=== PATIENT | male | born 1960 | race Caucasian/White ===

== ENCOUNTER 2017-07-18 14:44 | Inpatient (IN) | payer OTHER ==
[~2017-07-18] VITALS: Ht 175.3 cm; Wt 91.1 kg
[2017-07-18 15:14] VITALS: BP 145/104
[2017-07-18] MEDS ORDERED: ENOXAPARIN 40 MG/0.4 ML SQ SCH (16:00)
[2017-07-18] MEDS ORDERED: hydrALAzine 20 MG/ML, 1ML IVPush PRN (16:00)
[2017-07-18] MEDS: PLEASE ENTER HEIGHT AND WEIGHT MC SCH ×2 (16:30→17:17)
[2017-07-18 16:35] LABS: HEMATOCRIT 54.4 % (39.2-51.8); HEMOGLOBIN 18.5 g/dL (13.7-18.0); WHITE BLOOD COUNT 7.6 x10^3/uL (3.4-10)
[2017-07-18] MEDS: morphine SULFATE 10 MG/ML, 1ML IVPush PRN ×3 (16:35→22:52)
[2017-07-18 16:53] LABS: CARCINOEMBRYONIC ANTIGEN 7.36 ng/mL (0.0-3.00)
[2017-07-18] MEDS: D5%-0.45NACL+KCL 20MEQ 1,000 ML IV SCH (18:02)
[2017-07-18] MEDS: NICOTINE 14MG/24 HR PATCH.TD24 TD SCH (18:04)
[2017-07-18] MEDS: ONDANSETRON 2MG/ML, 2ML IVPush PRN (19:46)
[2017-07-18 19:52] LABS: DAU SCREEN DISCLAIMER
[2017-07-18] MEDS ORDERED: LORazepam 2 MG/ML, 1ML IVPush ONE (21:00)
[2017-07-18 21:12] VITALS: BP 170/105
[2017-07-19] MEDS: ONDANSETRON 2MG/ML, 2ML IVPush PRN (01:09)
[2017-07-19] MEDS: morphine SULFATE 10 MG/ML, 1ML IVPush PRN (01:48)
[2017-07-19] MEDS ORDERED: LORazepam 2 MG/ML, 1ML IVPush ONE (04:00)
[2017-07-19 04:04] VITALS: BP 144/95
[2017-07-19] MEDS: D5%-0.45NACL+KCL 20MEQ 1,000 ML IV SCH (04:17)
[2017-07-19 05:42] LABS: HEMOGLOBIN 18.6 g/dL (13.7-18.0); WHITE BLOOD COUNT 6.8 x10^3/uL (3.4-10)
[2017-07-19 05:52] LABS: ASPARTATE AMINO TRANSFERASE 24 U/L (15-37); BLOOD UREA NITROGEN 26 mg/dL (7-18)
[2017-07-19] MEDS: PANTOPRAZOLE 40 MG IV IVPush SCH (07:30)
[2017-07-19 07:32] LABS: DIFF TOTAL CELLS COUNTED 100 CELL DIFF
[2017-07-19] MEDS ORDERED: KETAMINE 10 MG/ML, 20ML ONE (08:25)
[2017-07-19] MEDS ORDERED: FENTANYL PF 100 MCG/2ML ONE (08:25)
[2017-07-19] MEDS ORDERED: ETOMIDATE 20 MG/10 ML ONE (08:32)
[2017-07-19] MEDS ORDERED: SUCCINYLCHOLINE 20 MG/ML, 10ML ONE (08:32)
[2017-07-19] MEDS ORDERED: ROCURONIUM 10 MG/ML ONE ×2 (08:32)
[2017-07-19] MEDS ORDERED: PROPOFOL 10 MG/ML, 20ML ONE (08:32)
[2017-07-19 09:00] LABS: VERIFY COUNTS? YES
[2017-07-19 09:01] LABS: LARGE PLATELETS 1+
[2017-07-19] MEDS ORDERED: HYDROmorphone 1 MG/ML, 1ML ONE (09:13)
[2017-07-19] MEDS: PROPOFOL 100 ML IV PRN ×2 (10:31→17:42)
[2017-07-19] MEDS ORDERED: ONDANSETRON 2MG/ML, 2ML IV PRN (11:00)
[2017-07-19] MEDS ORDERED: HYDROmorphone 1 MG/ML, 1ML IV PRN (11:00)
[2017-07-19] MEDS ORDERED: morphine SULFATE 10 MG/ML, 1ML IV PRN (11:00)
[2017-07-19] MEDS: POTASSIUM CHLORIDE 20 MEQ in D5%-0.45% NACL 1,000 ML IV SCH ×2 (11:00→19:05)
[2017-07-19] MEDS ORDERED: MORPHINE SULFATE 4 MG/ML, 1ML ONE (13:47)
[2017-07-19] MEDS: MORPHINE SULFATE 4 MG/ML, 1ML IV PRN ×2 (14:30→20:47)
[2017-07-19] MEDS ORDERED: ACETAMINOPHEN 325 MG TABLET PO PRN (14:30)
[2017-07-19] MEDS ORDERED: ACETAMINOPHEN 650 MG SUPP PR PRN (14:30)
[2017-07-19] MEDS ORDERED: PROPOFOL 100 ML IV PRN (15:11)
[2017-07-19] MEDS: ALBUTEROL/IPRATROPIUM 2.5MG/0.5MG, 3 ML INLINE SCH ×3 (15:30→22:48)
[2017-07-19] MEDS ORDERED: SODIUM CHLORIDE 0.9% 1,000ML IVBOLUS ONE (15:30)
[2017-07-19] MEDS ORDERED: FENTANYL PF 100 MCG/2ML IVPush PRN (15:30)
[2017-07-19] MEDS ORDERED: PHARMACY MAY ADJ FOR RENAL FX MC SCH (15:30)
[2017-07-19] MEDS ORDERED: LIDOCAINE-MPF 1%, 2ML ENDO PRN (15:30)
[2017-07-19 15:45] LABS: ABG COLLECTION SITE ARTERIAL LINE
[2017-07-19] MEDS: CEFOTETAN PMX 1GM/50ML 50 ML IVPB SCH (16:43)
[2017-07-19] MEDS: NICOTINE 14MG/24 HR PATCH.TD24 TD SCH (21:05)
[2017-07-20] MEDS: MORPHINE SULFATE 4 MG/ML, 1ML IV PRN ×3 (00:32→11:50)
[2017-07-20] MEDS: PROPOFOL 100 ML IV PRN (00:42)
[2017-07-20] MEDS: POTASSIUM CHLORIDE 20 MEQ in D5%-0.45% NACL 1,000 ML IV SCH ×3 (02:46→18:03)
[2017-07-20] MEDS: ALBUTEROL/IPRATROPIUM 2.5MG/0.5MG, 3 ML INLINE SCH ×2 (03:00→06:30)
[2017-07-20 03:45] VITALS: BP 112/73
[2017-07-20 04:17] LABS: ABG COLLECTION SITE ARTERIAL LINE
[2017-07-20 04:20] LABS: HEMATOCRIT 47.8 % (39.2-51.8)
[2017-07-20 04:21] LABS: DIFF TOTAL CELLS COUNTED 100 CELL DIFF
[2017-07-20 04:31] LABS: BLOOD UREA NITROGEN 29 mg/dL (7-18)
[2017-07-20 04:40] LABS: ASPARTATE AMINO TRANSFERASE 27 U/L (15-37)
[2017-07-20 04:45] LABS: VERIFY COUNTS? YES
[2017-07-20] MEDS: CEFOTETAN PMX 1GM/50ML 50 ML IVPB SCH (05:36)
[2017-07-20] MEDS: ENOXAPARIN 40 MG/0.4 ML SQ SCH (05:36)
[2017-07-20] MEDS ORDERED: SODIUM CHLORIDE 0.9%, 500ML IVBOLUS ONE (06:30)
[2017-07-20] MEDS: PIPERACILLIN/TAZO/PMX 3.375GM 50 ML IV SCH ×3 (08:09→18:03)
[2017-07-20] MEDS: PANTOPRAZOLE 40 MG IV IVPush SCH (08:10)
[2017-07-20] MEDS: HYDROmorphone 1 MG/ML, 1ML IV PRN ×3 (16:24→22:55)
[2017-07-20] MEDS: NICOTINE 14MG/24 HR PATCH.TD24 TD SCH (20:02)
[2017-07-21] MEDS: PIPERACILLIN/TAZO/PMX 3.375GM 50 ML IV SCH ×4 (00:21→18:09)
[2017-07-21] MEDS: HYDROmorphone 1 MG/ML, 1ML IV PRN ×6 (03:17→19:57)
[2017-07-21] MEDS: POTASSIUM CHLORIDE 20 MEQ in D5%-0.45% NACL 1,000 ML IV SCH ×2 (03:17→18:06)
[2017-07-21 04:00] VITALS: BP 130/60
[2017-07-21 04:25] LABS: ABG COLLECTION SITE RIGHT RADIAL; COLLATERAL CIRCULATION TESTING NORMAL
[2017-07-21 04:36] LABS: HEMATOCRIT 40.9 % (39.2-51.8); HEMOGLOBIN 13.9 g/dL (13.7-18.0); WHITE BLOOD COUNT 9.4 x10^3/uL (3.4-10)
[2017-07-21 04:43] LABS: BLOOD UREA NITROGEN 19 mg/dL (7-18)
[2017-07-21] MEDS: ENOXAPARIN 40 MG/0.4 ML SQ SCH (05:34)
[2017-07-21 05:35] LABS: DIFF TOTAL CELLS COUNTED 100 CELL DIFF
[2017-07-21 05:39] LABS: VERIFY COUNTS? YES
[2017-07-21] MEDS: PANTOPRAZOLE 40 MG IV IVPush SCH (07:55)
[2017-07-21 14:50] VITALS: BP 112/69
[2017-07-21 19:13] VITALS: BP 158/64
[2017-07-21] MEDS: NICOTINE 14MG/24 HR PATCH.TD24 TD SCH (19:58)
[2017-07-21] MEDS: OXYcodone IR 5MG TABLET PO PRN (22:50)
[2017-07-21] MEDS ORDERED: DIPHENHYDRAMINE 25 MG CAPSULE PO PRN (23:00)
[2017-07-22] MEDS ORDERED: ACETAMINOPHEN 325 MG TABLET PO PRN (01:30)
[2017-07-22] MEDS ORDERED: ACETAMINOPHEN 650 MG SUPP PR PRN (01:30)
[2017-07-22] MEDS ORDERED: ONDANSETRON 2MG/ML, 2ML IV PRN (01:30)
[2017-07-22] MEDS ORDERED: PHARMACY MAY ADJ FOR RENAL FX MC SCH (01:30)
[2017-07-22] MEDS ORDERED: DIPHENHYDRAMINE 25 MG CAPSULE PO PRN (01:30)
[2017-07-22] MEDS: PIPERACILLIN/TAZO/PMX 3.375GM 50 ML IV SCH ×4 (01:32→18:21)
[2017-07-22] MEDS: HYDROmorphone 1 MG/ML, 1ML IV PRN ×4 (01:32→20:50)
[2017-07-22 01:37] VITALS: BP 134/80
[2017-07-22 04:36] LABS: HEMATOCRIT 41.8 % (39.2-51.8); HEMOGLOBIN 14.1 g/dL (13.7-18.0); WHITE BLOOD COUNT 10.1 x10^3/uL (3.4-10)
[2017-07-22 04:46] LABS: BLOOD UREA NITROGEN 15 mg/dL (7-18)
[2017-07-22 04:50] LABS: ASPARTATE AMINO TRANSFERASE 38 U/L (15-37)
[2017-07-22] MEDS: ENOXAPARIN 40 MG/0.4 ML SQ SCH (05:40)
[2017-07-22 06:20] LABS: DIFF TOTAL CELLS COUNTED 100 CELL DIFF
[2017-07-22 06:49] LABS: LARGE PLATELETS 1+; VERIFY COUNTS? YES
[2017-07-22 09:24] VITALS: BP 132/90
[2017-07-22] MEDS: OXYcodone IR 5MG TABLET PO PRN (10:11)
[2017-07-22] MEDS: POTASSIUM CHLORIDE 20 MEQ in D5%-0.45% NACL 1,000 ML IV SCH ×2 (11:57→21:26)
[2017-07-22 16:59] VITALS: BP 145/95
[2017-07-22 20:07] VITALS: BP 160/95
[2017-07-22] MEDS: NICOTINE 14MG/24 HR PATCH.TD24 TD SCH (20:50)
[2017-07-23] MEDS: PIPERACILLIN/TAZO/PMX 3.375GM 50 ML IV SCH ×3 (00:42→13:10)
[2017-07-23] MEDS: HYDROmorphone 1 MG/ML, 1ML IV PRN ×3 (00:44→21:14)
[2017-07-23 02:00] VITALS: BP 142/94
[2017-07-23] MEDS ORDERED: POTASSIUM CHLORIDE 20 MEQ in D5%-0.45% NACL 1,000 ML IV SCH (04:00)
[2017-07-23 05:28] LABS: DIFF TOTAL CELLS COUNTED 100 CELL DIFF
[2017-07-23 05:36] LABS: HEMATOCRIT 44.7 % (39.2-51.8); HEMOGLOBIN 15.5 g/dL (13.7-18.0); WHITE BLOOD COUNT 8.4 x10^3/uL (3.4-10)
[2017-07-23 05:52] LABS: BLOOD UREA NITROGEN 11 mg/dL (7-18)
[2017-07-23] MEDS: ENOXAPARIN 40 MG/0.4 ML SQ SCH (06:27)
[2017-07-23 06:28] LABS: VERIFY COUNTS? YES
[2017-07-23] MEDS: HYDROmorphone 2MG TABLET PO PRN ×6 (06:45→23:34)
[2017-07-23 08:00] VITALS: BP 142/88
[2017-07-23 15:00] VITALS: BP 128/88
[2017-07-23] MEDS: metroNIDAZOLE 500 MG TABLET PO SCH ×2 (16:44→23:34)
[2017-07-23 19:10] VITALS: BP 135/84
[2017-07-23] MEDS: NICOTINE 14MG/24 HR PATCH.TD24 TD SCH (22:03)
[2017-07-24] MEDS: HYDROmorphone 2MG TABLET PO PRN ×8 (01:23→22:48)
[2017-07-24 03:51] VITALS: BP 138/84
[2017-07-24 06:00] LABS: DIFF TOTAL CELLS COUNTED 100 CELL DIFF
[2017-07-24 06:09] LABS: HEMATOCRIT 45.9 % (39.2-51.8); HEMOGLOBIN 15.8 g/dL (13.7-18.0); WHITE BLOOD COUNT 11.1 x10^3/uL (3.4-10)
[2017-07-24 06:14] LABS: BLOOD UREA NITROGEN 10 mg/dL (7-18)
[2017-07-24] MEDS: metroNIDAZOLE 500 MG TABLET PO SCH ×3 (06:41→22:46)
[2017-07-24] MEDS: ENOXAPARIN 40 MG/0.4 ML SQ SCH (06:41)
[2017-07-24 07:00] LABS: VERIFY COUNTS? YES
[2017-07-24 09:11] VITALS: BP 132/84
[2017-07-24] MEDS: LEVOFLOXACIN 750 MG TABLET PO SCH (09:12)
[2017-07-24 13:30] VITALS: BP 134/82
[2017-07-24] MEDS: HYDROmorphone 1 MG/ML, 1ML IV PRN (14:08)
[2017-07-24] MEDS: NICOTINE 14MG/24 HR PATCH.TD24 TD SCH (19:39)
[2017-07-24 20:42] VITALS: BP 125/81
[2017-07-25] MEDS: HYDROmorphone 2MG TABLET PO PRN ×7 (02:56→20:32)
[2017-07-25 04:00] VITALS: BP 134/86
[2017-07-25 06:05] LABS: DIFF TOTAL CELLS COUNTED 100 CELL DIFF
[2017-07-25 06:14] LABS: HEMATOCRIT 46.5 % (39.2-51.8); HEMOGLOBIN 15.9 g/dL (13.7-18.0); WHITE BLOOD COUNT 15.4 x10^3/uL (3.4-10)
[2017-07-25 06:19] LABS: ASPARTATE AMINO TRANSFERASE 49 U/L (15-37); BLOOD UREA NITROGEN 13 mg/dL (7-18)
[2017-07-25] MEDS: metroNIDAZOLE 500 MG TABLET PO SCH ×3 (06:21→22:55)
[2017-07-25] MEDS: ENOXAPARIN 40 MG/0.4 ML SQ SCH (06:22)
[2017-07-25 06:40] LABS: VERIFY COUNTS? YES
[2017-07-25 07:15] VITALS: BP 125/80
[2017-07-25 07:48] VITALS: BP 125/80
[2017-07-25] MEDS: LEVOFLOXACIN 750 MG TABLET PO SCH (09:35)
[2017-07-25] MEDS ORDERED: PNEUMOCOCCAL 23 VACCINE IM-VACC ONE (13:00)
[2017-07-25 13:48] VITALS: BP 106/71
[2017-07-25 19:17] VITALS: BP 126/81
[2017-07-25] MEDS: NICOTINE 14MG/24 HR PATCH.TD24 TD SCH (19:56)
[2017-07-26] MEDS: HYDROmorphone 2MG TABLET PO PRN ×7 (01:19→21:12)
[2017-07-26 02:15] VITALS: BP 118/80
[2017-07-26 05:27] LABS: HEMATOCRIT 47.8 % (39.2-51.8); HEMOGLOBIN 16.2 g/dL (13.7-18.0); WHITE BLOOD COUNT 19.1 x10^3/uL (3.4-10)
[2017-07-26 05:47] LABS: DIFF TOTAL CELLS COUNTED 100 CELL DIFF
[2017-07-26 05:49] LABS: VERIFY COUNTS? YES
[2017-07-26 06:02] LABS: ASPARTATE AMINO TRANSFERASE 72 U/L (15-37); BLOOD UREA NITROGEN 18 mg/dL (7-18)
[2017-07-26] MEDS: metroNIDAZOLE 500 MG TABLET PO SCH ×3 (06:18→23:01)
[2017-07-26] MEDS: ENOXAPARIN 40 MG/0.4 ML SQ SCH (06:18)
[2017-07-26] MEDS: LEVOFLOXACIN 750 MG TABLET PO SCH (09:00)
[2017-07-26 09:30] VITALS: BP 116/81
[2017-07-26 13:25] VITALS: BP 110/69
[2017-07-26 18:33] VITALS: BP 137/88
[2017-07-26] MEDS: NICOTINE 14MG/24 HR PATCH.TD24 TD SCH (19:41)
[2017-07-27 00:23] VITALS: BP 155/88
[2017-07-27] MEDS: HYDROmorphone 2MG TABLET PO PRN ×8 (00:58→23:09)
[2017-07-27 05:35] LABS: DIFF TOTAL CELLS COUNTED 100 CELL DIFF
[2017-07-27 05:45] LABS: HEMATOCRIT 45.4 % (39.2-51.8); HEMOGLOBIN 15.3 g/dL (13.7-18.0); WHITE BLOOD COUNT 14.6 x10^3/uL (3.4-10)
[2017-07-27 06:00] LABS: BLOOD UREA NITROGEN 20 mg/dL (7-18)
[2017-07-27 06:05] LABS: ASPARTATE AMINO TRANSFERASE 96 U/L (15-37)
[2017-07-27 06:13] LABS: VERIFY COUNTS? YES
[2017-07-27 06:14] LABS: POLYCHROMASIA 1+
[2017-07-27] MEDS: metroNIDAZOLE 500 MG TABLET PO SCH ×3 (06:49→23:09)
[2017-07-27] MEDS: ENOXAPARIN 40 MG/0.4 ML SQ SCH (06:49)
[2017-07-27] MEDS: LEVOFLOXACIN 750 MG TABLET PO SCH (08:52)
[2017-07-27 08:55] VITALS: BP 120/69
[2017-07-27 13:55] VITALS: BP 121/71
[2017-07-27] MEDS: LACTOBACILLUS CHEW TABLET PO SCH ×2 (17:01→20:08)
[2017-07-27 19:11] VITALS: BP 112/71
[2017-07-27] MEDS: NICOTINE 14MG/24 HR PATCH.TD24 TD SCH (20:08)
[2017-07-28 00:37] VITALS: BP 132/83
[2017-07-28] MEDS: HYDROmorphone 2MG TABLET PO PRN ×9 (01:23→22:19)
[2017-07-28 05:28] LABS: DIFF TOTAL CELLS COUNTED 100 CELL DIFF
[2017-07-28 05:30] LABS: HEMATOCRIT 42.9 % (39.2-51.8); HEMOGLOBIN 14.8 g/dL (13.7-18.0); WHITE BLOOD COUNT 14.5 x10^3/uL (3.4-10)
[2017-07-28 06:09] LABS: BLOOD UREA NITROGEN 19 mg/dL (7-18)
[2017-07-28] MEDS: ENOXAPARIN 40 MG/0.4 ML SQ SCH (06:10)
[2017-07-28 06:20] LABS: VERIFY COUNTS? YES
[2017-07-28] MEDS: metroNIDAZOLE 500 MG TABLET PO SCH ×3 (06:39→22:19)
[2017-07-28] MEDS: LACTOBACILLUS CHEW TABLET PO SCH ×3 (08:04→20:01)
[2017-07-28] MEDS: LEVOFLOXACIN 750 MG TABLET PO SCH (08:04)
[2017-07-28 08:30] VITALS: BP 128/78
[2017-07-28 14:00] VITALS: BP 125/81
[2017-07-28] MEDS ORDERED: PHARMACY MAY ADJ FOR RENAL FX MC SCH (18:30)
[2017-07-28] MEDS ORDERED: ACETAMINOPHEN 650 MG SUPP PR PRN (18:30)
[2017-07-28] MEDS ORDERED: DIPHENHYDRAMINE 25 MG CAPSULE PO PRN (18:30)
[2017-07-28] MEDS ORDERED: ACETAMINOPHEN 325 MG TABLET PO PRN (18:30)
[2017-07-28] MEDS: NICOTINE 14MG/24 HR PATCH.TD24 TD SCH (20:01)
[2017-07-28] MEDS: PIPERACILLIN/TAZO/PMX 3.375GM 50 ML IV SCH (20:05)
[2017-07-28 20:12] VITALS: BP 126/77
[2017-07-29] MEDS: HYDROmorphone 2MG TABLET PO PRN ×8 (01:09→23:08)
[2017-07-29] MEDS: PIPERACILLIN/TAZO/PMX 3.375GM 50 ML IV SCH ×5 (01:09→21:59)
[2017-07-29 01:17] VITALS: BP 124/80
[2017-07-29] MEDS: ENOXAPARIN 40 MG/0.4 ML SQ SCH (05:20)
[2017-07-29 05:42] LABS: DIFF TOTAL CELLS COUNTED 100 CELL DIFF; HEMOGLOBIN 14.8 g/dL (13.7-18.0); WHITE BLOOD COUNT 12.9 x10^3/uL (3.4-10)
[2017-07-29 06:20] LABS: BLOOD UREA NITROGEN 14 mg/dL (7-18)
[2017-07-29 06:29] LABS: VERIFY COUNTS? YES
[2017-07-29] MEDS: POTASSIUM CHLORIDE 20 MEQ TAB.ER.PRT PO SCH ×3 (07:35→17:03)
[2017-07-29] MEDS: metroNIDAZOLE 500 MG TABLET PO SCH ×3 (07:35→23:08)
[2017-07-29] MEDS: LACTOBACILLUS CHEW TABLET PO SCH ×3 (07:35→21:58)
[2017-07-29 07:49] VITALS: BP 116/76
[2017-07-29 13:30] VITALS: BP 121/75
[2017-07-29] MEDS ORDERED: ONDANSETRON 2MG/ML, 2ML IV PRN (19:30)
[2017-07-29] MEDS ORDERED: PHARMACY MAY ADJ FOR RENAL FX MC SCH (19:30)
[2017-07-29] MEDS ORDERED: ACETAMINOPHEN 650 MG SUPP PR PRN (19:30)
[2017-07-29] MEDS ORDERED: DIPHENHYDRAMINE 25 MG CAPSULE PO PRN (19:30)
[2017-07-29 20:22] VITALS: BP 120/79
[2017-07-29] MEDS: NICOTINE 14MG/24 HR PATCH.TD24 TD SCH (21:58)
[2017-07-30 01:44] VITALS: BP 126/77
[2017-07-30] MEDS: HYDROmorphone 2MG TABLET PO PRN ×7 (02:37→22:14)
[2017-07-30] MEDS: PIPERACILLIN/TAZO/PMX 3.375GM 50 ML IV SCH ×4 (04:30→22:14)
[2017-07-30 06:03] LABS: DIFF TOTAL CELLS COUNTED 100 CELL DIFF
[2017-07-30 06:07] LABS: HEMATOCRIT 44.2 % (39.2-51.8); HEMOGLOBIN 15.1 g/dL (13.7-18.0); WHITE BLOOD COUNT 15.1 x10^3/uL (3.4-10)
[2017-07-30 06:22] LABS: BLOOD UREA NITROGEN 11 mg/dL (7-18)
[2017-07-30] MEDS: ENOXAPARIN 40 MG/0.4 ML SQ SCH (06:26)
[2017-07-30] MEDS: metroNIDAZOLE 500 MG TABLET PO SCH (06:32)
[2017-07-30 07:05] LABS: VERIFY COUNTS? YES
[2017-07-30 07:54] VITALS: BP 124/86
[2017-07-30] MEDS: LACTOBACILLUS CHEW TABLET PO SCH ×3 (09:26→22:14)
[2017-07-30 13:34] VITALS: BP 122/85
[2017-07-30] MEDS ORDERED: OMNIPAQUE 350 MG/ML, 100ML BOTTLE ONE (14:04)
[2017-07-30 20:59] VITALS: BP 148/82
[2017-07-30] MEDS: NICOTINE 14MG/24 HR PATCH.TD24 TD SCH (21:09)
[2017-07-31] MEDS: HYDROmorphone 2MG TABLET PO PRN ×6 (02:02→21:20)
[2017-07-31 03:51] VITALS: BP 120/81
[2017-07-31] MEDS: PIPERACILLIN/TAZO/PMX 3.375GM 50 ML IV SCH ×4 (03:57→21:11)
[2017-07-31] MEDS: ENOXAPARIN 40 MG/0.4 ML SQ SCH (05:19)
[2017-07-31 05:30] LABS: BLOOD UREA NITROGEN 11 mg/dL (7-18)
[2017-07-31 06:14] LABS: HEMATOCRIT 43.9 % (39.2-51.8); HEMOGLOBIN 14.9 g/dL (13.7-18.0); WHITE BLOOD COUNT 12.5 x10^3/uL (3.4-10)
[2017-07-31 07:53] VITALS: BP 133/79
[2017-07-31] MEDS: LACTOBACILLUS CHEW TABLET PO SCH ×3 (09:30→21:11)
[2017-07-31 13:25] VITALS: BP 112/68
[2017-07-31 19:44] VITALS: BP 129/77
[2017-07-31] MEDS: NICOTINE 14MG/24 HR PATCH.TD24 TD SCH (21:11)
[2017-08-01] MEDS: HYDROmorphone 2MG TABLET PO PRN ×5 (00:46→13:00)
[2017-08-01] MEDS: PIPERACILLIN/TAZO/PMX 3.375GM 50 ML IV SCH ×2 (03:33→10:08)
[2017-08-01 04:35] VITALS: BP 127/80
[2017-08-01 05:19] LABS: HEMATOCRIT 44.3 % (39.2-51.8); HEMOGLOBIN 14.9 g/dL (13.7-18.0); WHITE BLOOD COUNT 10.8 x10^3/uL (3.4-10)
[2017-08-01] MEDS: ENOXAPARIN 40 MG/0.4 ML SQ SCH (06:28)
[2017-08-01 08:22] VITALS: BP 111/73
[2017-08-01] MEDS: LACTOBACILLUS CHEW TABLET PO SCH (10:11)
[2017-08-01] MEDS ORDERED: OXYC5TAB3 PO (12:59)
[2017-08-01] MEDS ORDERED: IBUP-1484 PO (12:59)
[2017-08-01] MEDS ORDERED: NICO-485 TD (12:59)
[2017-08-01] MEDS ORDERED: ALPR0.254 PO (12:59)
[2017-08-01 14:44] VITALS: BP 129/79
== END 2017-08-01 15:10 | disposition home or self-care (01) | DRG 329 ==
LOC: 4NOR 14:44 → CCU 07-19 10:03 → 4NOR 07-21 11:49
PROVIDERS: ADMIT Internal Medicine; ATTEND Internal Medicine
PROC: 0D1N0Z4 Bypass Sigmoid Colon to Cutaneous, Open Approach (ICD-10-PCS; 2017-07-19)
PROC: 0DTN0ZZ Resection of Sigmoid Colon, Open Approach (ICD-10-PCS; principal; 2017-07-19 10:00)
PROC: 0T9B70Z Drainage of Bladder with Drainage Device, Via Natural or Artificial Opening (ICD-10-PCS; 2017-07-20)
DX: K57.20 Diverticulitis of large intestine with perforation and abscess without bleeding (principal); J96.00 Acute respiratory failure, unspecified whether with hypoxia or hypercapnia; N17.0 Acute kidney failure with tubular necrosis; Z99.11 Dependence on respirator [ventilator] status; R18.8 Other ascites; J84.10 Pulmonary fibrosis, unspecified; K66.8 Other specified disorders of peritoneum; N39.0 Urinary tract infection, site not specified; I10 Essential (primary) hypertension; F15.10 Other stimulant abuse, uncomplicated; B95.2 Enterococcus as the cause of diseases classified elsewhere; F10.20 Alcohol dependence, uncomplicated; F17.210 Nicotine dependence, cigarettes, uncomplicated; J44.9 Chronic obstructive pulmonary disease, unspecified; B95.3 Streptococcus pneumoniae as the cause of diseases classified elsewhere; M1A.9XX0 Chronic gout, unspecified, without tophus (tophi); Z51.5 Encounter for palliative care; Z80.0 Family history of malignant neoplasm of digestive organs; Z80.1 Family history of malignant neoplasm of trachea, bronchus and lung; Z82.49 Family history of ischemic heart disease and other diseases of the circulatory system; Z83.3 Family history of diabetes mellitus; Z91.14 Patient's other noncompliance with medication regimen; Z90.49 Acquired absence of other specified parts of digestive tract
CPT/HCPCS: 36415; 36600; 71010; 71022; 71250; 74000; 74177; 80048; 80053; 80307; 81001; 82378; 82803; 83605; 83735; 84100; 84478; 85025; 86301; 86850; 86900; 87040; 87070; 87077; 87081; 87086; 87184; 87186; 87205; 87324; 88307; 88329; 90732; 93005; 94002; 94003; 94640; J1170; J1650; J2405; J2543; J2704; J3010; J3480; J7620; Q9967; C9113; G0479; J0330; J0360; J2060; J2270; J7030; J7040; Q0163; S0074

== ENCOUNTER → 2017-10-16 | Outpatient (CLI) | payer OTHER ==
[~2017-10-16] MED LIST: ALLO100T30 PO; ALPR0.254 PO; ASPI-496 PO; CHOL5000 PO; ESCI20TA PO; IBUP-1484 PO; LACT1CAP43 PO; MELA5TAB19 PO; METO-93 PO; NICO-485 TD; OXYC5TAB3 PO; [UNRECOGNIZED DRUG - OTHER] PO
[2017-10-16 11:47] LABS: HEMATOCRIT 49.9 % (39.2-51.8); HEMOGLOBIN 17.2 g/dL (13.7-18.0); WHITE BLOOD COUNT 7.3 x10^3/uL (3.4-10)
[2017-10-16 11:59] LABS: ASPARTATE AMINO TRANSFERASE 35 U/L (15-37); BLOOD UREA NITROGEN 13 mg/dL (7-18)
== END | disposition home or self-care (01) ==
LOC: STAR 10:44
PROVIDERS: ATTEND Surgery
DX: Z01.818 Encounter for other preprocedural examination (principal); K57.32 Diverticulitis of large intestine without perforation or abscess without bleeding
CPT/HCPCS: 36415; 80053; 85025; 93005